=== PATIENT | female | born 1945 | race Caucasian/White ===

== ENCOUNTER → 2016-09-20 | Outpatient (CLI) | payer MEDICARE | END | disposition home or self-care (01) | LOC: PCVCIMAG 08:46 | PROVIDERS: ATTEND Internal Medicine Cardiovascular Disease | DX: I67.9 Cerebrovascular disease, unspecified (principal); E78.5 Hyperlipidemia, unspecified; K21.9 Gastro-esophageal reflux disease without esophagitis; R07.9 Chest pain, unspecified | CPT/HCPCS: 78452; 93017; A9500 ==